=== PATIENT | female | born 1970 | race American Indian/Alaskan Native ===

== ENCOUNTER 2019-01-05 20:50 | Emergency (ER) | payer OTHER ==
[2019-01-05 20:51] VITALS: BMI 31.4
[2019-01-05] MEDS ORDERED: EPINEPHrine 1 mg/ml (1:1000) Inj SC ONE (21:03)
--- NOTE | 2019-01-05 21:10 | ED PDOC ---
Arrival/HPI - General Time Seen by Provider: 01/05/19 20:59 Historian: Patient - History of Present Illness Narrative History of Present Illness (Text): 01/05/19 21:06 A 48 year old female with no significant past medical history presents to the emergency department for evaluation following an allergic reaction after eating lobster earlier tonight. Patient states she has had a reaction in the past for eating shrimp. Patient is complaining of swelling to the face and eyelids. Patient notes she had taken 50 mg of Benadryl 15 minutes prior to arrival to the ED. Patient denies any fever, shortness of breath, chest pain, or any other complaints. Time/Duration: 1-3 hours Symptom Onset: Sudden Symptom Course: Unchanged Activities at Onset: Significant, Eating Past Medical History - Provider Review Nursing Documentation Reviewed: Yes Family/Social History - Physician Review Nursing Documentation Reviewed: Yes Family/Social History: No Known Family HX Allergies/Home Meds Allergies/Adverse Reactions: Allergies No Known Allergies Allergy (Verified 01/05/19 20:51) Review of Systems - Physician Review All systems were reviewed & negative as marked: Yes - Review of Systems Constitutional: absent: Fevers Respiratory: absent: SOB Cardiovascular: absent: Chest Pain Skin: Other (swelling to the face and eyelids) Physical Exam - Systems Exam Head: Present: Atraumatic, Normocephalic Pupils: Present: PERRL Extroacular Muscles: Present: EOMI Conjunctiva: Present: Normal Mouth: Present: Moist Mucous Membranes Neck: Present: Normal Range of Motion Respiratory/Chest: Present: Clear to Auscultation, Good Air Exchange. No: Respiratory Distress, Accessory Muscle Use Cardiovascular: Present: Regular Rate and Rhythm, Normal S1, S2. No: Murmurs Abdomen: No: Tenderness, Distention, Peritoneal Signs Back: Present: Normal Inspection Upper Extremity: Present: Normal Inspection. No: Cyanosis, Edema Lower Extremity: Present: Normal Inspection. No: Edema Neurological: Present: GCS=15, CN II-XII Intact, Speech Normal Skin: Present: Other (diffused swelling to face and upper eyelids) Psychiatric: Present: Alert, Oriented x 3, Normal Insight, Normal Concentration Medical Decision Making ED Course and Treatment: 01/05/19 21:06 Impression: 48 year old female presenting to the emergency room for evaluation following an allergic reaction. Plan: -- Epinephrine -- Pepcid -- Solumedrol -- Reassess and disposition Progress Notes: - Medication Orders Current Medication Orders: Epinephrine HCl (Epinephrine) 0.3 mg SC ONCE ONE Stop: 01/05/19 21:04 Methylprednisolone (Solu-Medrol) 125 mg IVP ONCE ONE Stop: 01/05/19 21:04 - Scribe Statement The provider has reviewed the documentation as recorded by the Annita Segundo All medical record entries made by the Neliibtiffani were at my direction and personally dictated by me. I have reviewed the chart and agree that the record accurately reflects my personal performance of the history, physical exam, medical decision making, and the department course for this patient. I have also personally directed, reviewed, and agree with the discharge instructions and disposition. Disposition/Present on Arrival - Present on Arrival Any Indicators Present on Arrival: No - Disposition Have Diagnosis and Disposition been Completed?: Yes Diagnosis: Allergic reaction to food Disposition: HOME/ ROUTINE Disposition Time: 23:30 Patient Plan: Discharge Patient Problems: Current Active Problems Problem Status Onset Allergic reaction to food Acute Condition: STABLE Discharge Instructions (ExitCare): Food Allergy Additional Instructions: Avoid shellfish in the future/take meds as prescribed/follow up with your doctor/any recurrent worsening symptoms return to the emergency room Prescriptions: DiphenhydrAMINE [Benadryl] 50 mg PO Q6 PRN #24 cap PRN Reason: Itching / Pruritus Famotidine [Pepcid] 20 mg PO BID PRN #24 tab PRN Reason: Allergy Symptoms predniSONE [Prednisone] 40 mg PO DAILY #10 tab
[2019-01-05 23:39] VITALS: BP 126/74; PULSE 84; RESP 17; O2SAT 97
== END 2019-01-05 23:38 | disposition home or self-care (01) ==
LOC: ED 20:50 → MERGE 20:50 → ED 23:38
DX: T78.1XXA Other adverse food reactions, not elsewhere classified, initial encounter (principal)
CPT/HCPCS: 81025; 96372; 96374; 96375; 99283; J0171; J2930